=== PATIENT | female | born 1945 | race Caucasian/White ===

== ENCOUNTER 2023-03-02 06:02 | Day surgery (SDC) | payer MEDICARE ==
[2023-03-01 15:37] LABS: BASOPHILS # (AUTO) 0.03 K/uL (0.00-0.20); BASOPHILS % (AUTO) 0.5 % (0.0-5.0); EOSINOPHILS # (AUTO) 0.17 K/uL (0.00-0.70); EOSINOPHILS % (AUTO) 2.6 % (0.0-8.0); HEMATOCRIT 38.4 % (36-48); IMMATURE GRANULOCYTE ABSOLUTE 0.02 K/uL (0-1); LYMPHOCYTES # (AUTO) 2.3 K/uL (1.0-4.8); MEAN CORPUSCULAR HEMOGLOBIN 32.2 pg (27.0-33.0); MEAN CORPUSCULAR HGB CONC 33.3 g/dL (32.0-36.0); MEAN CORPUSCULAR VOLUME 96.5 fL (79-99); MONOCYTES # (AUTO) 0.6 K/uL (0.1-1.0); MONOCYTES % (AUTO) 9.2 % (3.0-13.0); NEUTROPHILS # (AUTO) 3.4 K/uL (1.8-7.7); NEUTROPHILS % (AUTO) 52.4 % (40.0-77.0); PLATELET COUNT (AUTO) 266 K/uL (130-400); RED BLOOD CELL COUNT(AUTO) 3.98 MIL/uL (4.00-5.50); RED CELL DISTRIBUTION WIDTH 12.8 % (11.0-15.5); WHITE BLOOD COUNT (AUTO) 6.5 K/uL (4.8-10.8)
[2023-03-01 15:50] LABS: CREATININE 0.7 mg/dL (0.5-1.5)
[2023-03-01 15:57] LABS: INR 0.94 (0.85-1.15); PROTHROMBIN TIME 10.9 SEC (9.6-11.6)
[2023-03-01 15:58] LABS: PARTIAL THROMBOPLASTIN TIME 27.6 SEC (26.3-35.5)
[2023-03-01 16:03] VITALS: BP 135/70; PULSE 63; RESP 18
[~2023-03-02] VITALS: Ht 157.5 cm; Wt 68.3 kg
[2023-03-02] VITALS (18 sets, daily range): BP systolic 99–171; BP diastolic 46–83; PULSE 54–68; RESP 9–17
[~2023-03-02 06:02] MED LIST: AEC81 PO; CLOP75TA32 PO; EZET10TA48 PO; OMEP20CA12 PO
[2023-03-02] MEDS ORDERED: LIDOCAINE HCL 2% VISCOUS 15 ML UDCUP ONE (06:38)
[2023-03-02] MEDS ORDERED: FENTANYL CITRATE PF 50 MCG/1 ML 2ML VIAL ONE (06:39)
[2023-03-02] MEDS ORDERED: MIDAZOLAM HCL 1 MG/ML 2ML VIAL ONE (06:39)
[2023-03-02] MEDS ORDERED: NALOXONE HCL 0.4 MG/1 ML ML ONE (06:40)
[2023-03-02] MEDS ORDERED: FLUMAZENIL 0.1MG/1ML 5ML VIAL IV ONE (06:40)
== END 2023-03-02 09:45 | disposition home or self-care (01) ==
LOC: DAH 06:02 → EDSTATUS 15:00
PROVIDERS: ATTEND Internal Medicine
DX: I63.9 Cerebral infarction, unspecified (principal); I37.1 Nonrheumatic pulmonary valve insufficiency; M79.7 Fibromyalgia; I25.2 Old myocardial infarction; I25.10 Atherosclerotic heart disease of native coronary artery without angina pectoris; Z79.01 Long term (current) use of anticoagulants; Z90.710 Acquired absence of both cervix and uterus; Z82.49 Family history of ischemic heart disease and other diseases of the circulatory system; Z83.42 Family history of familial hypercholesterolemia; Z87.891 Personal history of nicotine dependence; Z72.89 Other problems related to lifestyle; Z79.82 Long term (current) use of aspirin
CPT/HCPCS: 80048; 85025; 85610; 85730; 36415; 93005; 93325; 93312; J3010; J2250; A4215; A4223 ×3; A7002; A4222; A4221; A4663; A4216; A4606; 99152; J2310; J3490; G0500